=== PATIENT | male | born 1995 | race Caucasian/White ===

== ENCOUNTER 2016-09-28 05:18 | Emergency (ER) | payer OTHER, SELFPAY | END 2016-09-28 06:40 | disposition T | LOC: EDMED 05:18 | PROC: 0RSJXZZ Reposition Right Shoulder Joint, External Approach (ICD-10-PCS; principal; 2016-09-28) | DX: S43.004A Unspecified dislocation of right shoulder joint, initial encounter (principal); F17.200 Nicotine dependence, unspecified, uncomplicated; X58.XXXA Exposure to other specified factors, initial encounter; Y93.84 Activity, sleeping; Y92.019 Unspecified place in single-family (private) house as the place of occurrence of the external cause; Y99.8 Other external cause status ==